=== PATIENT | male | born 1975 | race Caucasian/White ===

== ENCOUNTER 2024-02-07 07:12 | Day surgery (SDC) | payer OTHER ==
[~2024-02-07] VITALS: Ht 170.2 cm; Wt 69.9 kg
[2024-02-07] MEDS ORDERED: MIDAZOLAM 2 MG/2 ML VIAL ONE (08:21)
[2024-02-07] MEDS ORDERED: fentaNYL citrate 0.05 MG/ML VIAL ONE (08:22)
[2024-02-07] MEDS: MIDAZOLAM 2 MG/2 ML VIAL IVP ONE (08:58)
[2024-02-07] MEDS: fentaNYL citrate 0.05 MG/ML VIAL IVP ONE (08:59)
[2024-02-07] MEDS: LIDOCAINE 2% 100 MG/5 ML UJET TP ONE (09:10)
== END 2024-02-07 10:18 | disposition home or self-care (01) ==
LOC: MOR 07:12 → MMU 07:13 → MOR 10:18
PROVIDERS: ATTEND Internal Medicine Gastroenterology
DX: Z12.11 Encounter for screening for malignant neoplasm of colon (principal); K22.9 Disease of esophagus, unspecified; K70.31 Alcoholic cirrhosis of liver with ascites; Z88.8 Allergy status to other drugs, medicaments and biological substances; Z98.890 Other specified postprocedural states
CPT/HCPCS: 43235; 45378; J2250; J3010